=== PATIENT | male | born 1985 | race Caucasian/White ===

== ENCOUNTER 2017-02-24 22:33 | Emergency (ER) | payer MEDICARE, MEDICAID ==
[~2017-02-24] VITALS: Ht 190.5 cm; Wt 107.0 kg
[2017-02-24 23:10] LABS: ASPARTATE AMINO TRANSFERASE 33 U/L (15-37); BLOOD UREA NITROGEN 16 mg/dL (7-18)
[2017-02-24] MEDS ORDERED: DIVA500T2 PO (23:58)
[2017-02-25] MEDS ORDERED: DIVALPROEX 500 MG TABLET.DR PO ONE
[2017-02-25] MEDS ORDERED: GABA300C10 PO (00:05)
[2017-02-25] MEDS ORDERED: TRAZ150T68 PO (00:05)
[2017-02-25] MEDS ORDERED: PRAZ2CAP2 PO (00:05)
[2017-02-25] MEDS ORDERED: DIVA500T2 PO (00:10)
[2017-02-25] MEDS ORDERED: LEVETIRACETAM 1,000 MG in SODIUM CHLORIDE 0.9% 100 ML IV ONE (02:30)
[2017-02-25] MEDS ORDERED: LORazepam 2 MG/ML, 1ML IVPush ONE (02:30)
[2017-02-25 03:28] VITALS: BP 124/78
== END 2017-02-25 03:31 | disposition home or self-care (01) ==
LOC: ED 23:59
DX: R56.9 Unspecified convulsions (principal)
CPT/HCPCS: 36415; 70450; 80053; 80307; 85025; 93005; 96365; 99285; J1953

== ENCOUNTER 2017-07-20 13:23 | Observation (INO) | payer MEDICARE, MEDICAID ==
[~2017-07-20] VITALS: Ht 190.5 cm; Wt 88.0 kg
[~2017-07-20 13:23] MED LIST: DIVA500T2 PO; GABA300C10 PO; PRAZ2CAP2 PO; TRAZ150T62 PO
[2017-07-20 14:03] LABS: HEMATOCRIT 53.9 % (39.2-51.8); HEMOGLOBIN 18.3 g/dL (13.7-18.0); WHITE BLOOD COUNT 15.3 x10^3/uL (3.4-10)
[2017-07-20 14:15] LABS: BLOOD UREA NITROGEN 18 mg/dL (7-18)
[2017-07-20 14:18] LABS: ASPARTATE AMINO TRANSFERASE 20 U/L (15-37)
[2017-07-20 14:19] LABS: ACETAMINOPHEN < 2 mcg/mL (10-30)
[2017-07-20] MEDS ORDERED: NICOTINE 14MG/24 HR PATCH.TD24 TD ONE (18:30)
[2017-07-20 18:31] LABS: DAU SCREEN DISCLAIMER
[2017-07-20] MEDS ORDERED: NICOTINE 14MG/24 HR PATCH.TD24 ONE (18:31)
[2017-07-20] MEDS ORDERED: ACETAMINOPHEN 325 MG TABLET PO PRN (20:30)
[2017-07-20] MEDS ORDERED: NICOTINE 21 MG/24 HR PATCH.TD24 TD SCH (20:30)
[2017-07-20] MEDS ORDERED: ALPR1TAB PO (22:15)
[2017-07-20] MEDS: TRAZODONE 50MG TABLET PO PRN (22:31)
[2017-07-21 05:59] LABS: HEMATOCRIT 50.3 % (39.2-51.8); HEMOGLOBIN 17.3 g/dL (13.7-18.0); WHITE BLOOD COUNT 9.1 x10^3/uL (3.4-10)
[2017-07-21 08:00] VITALS: BP 106/66
[2017-07-21] MEDS ORDERED: LORazepam 1MG TABLET PO PRN (17:00)
[2017-07-21] MEDS ORDERED: LORazepam 2 MG/ML, 1ML IM PRN (17:00)
[2017-07-21] MEDS ORDERED: OLANZAPINE 5 MG TABLET PO SCH ×2 (18:00→21:00)
[2017-07-21 19:28] VITALS: BP 133/95
[2017-07-21] MEDS ORDERED: IBUPROFEN 200 MG TABLET PO PRN (20:00)
[2017-07-21] MEDS: TRAZODONE 50MG TABLET PO PRN (20:24)
[2017-07-21] MEDS ORDERED: CITALOPRAM 20 MG TABLET PO SCH (21:00)
== END 2017-07-21 23:16 ==
LOC: ED 14:55 → EDIP 19:00 → 3E 21:27
PROVIDERS: ADMIT Hospitalist; ATTEND Hospitalist
DX: R45.851 Suicidal ideations (principal); D72.829 Elevated white blood cell count, unspecified; G40.909 Epilepsy, unspecified, not intractable, without status epilepticus; F32.3 Major depressive disorder, single episode, severe with psychotic features; F17.210 Nicotine dependence, cigarettes, uncomplicated; Z91.19 Patient's noncompliance with other medical treatment and regimen; Z91.5 Personal history of self-harm
CPT/HCPCS: 36415; 80053; 80307; 80329; 81003; 85025; 99285; G0378; G0479; G0480

== ENCOUNTER 2018-07-24 13:42 | Emergency (ER) | payer MEDICARE, MEDICAID ==
[~2018-07-24] VITALS: Ht 190.5 cm; Wt 110.6 kg
[~2018-07-24 13:42] MED LIST changes: +ALPR1TAB PO
[2018-07-24 14:02] VITALS: BP 116/80
[2018-07-24] MEDS ORDERED: HYDROcodone/APAP 5/325 TABLET ONE (14:24)
[2018-07-24] MEDS ORDERED: HYDROcodone/APAP 5/325 TABLET PO ONE (14:30)
== END 2018-07-24 15:14 | disposition home or self-care (01) ==
LOC: ED 15:10
DX: K02.9 Dental caries, unspecified (principal); R05 Cough; F31.9 Bipolar disorder, unspecified; I10 Essential (primary) hypertension; F41.1 Generalized anxiety disorder; F25.0 Schizoaffective disorder, bipolar type
CPT/HCPCS: 71046; 99284